=== PATIENT | female | born 1960 | race Caucasian/White ===

== ENCOUNTER 2017-08-10 12:09 | Emergency (ER) | payer OTHER ==
[~2017-08-10] VITALS: Ht 165.1 cm; Wt 90.7 kg
--- NOTE | 2017-08-10 12:19 | NUR ---
PATIENT TO ED DT COUGH AND COLD X LAST NIGHT CHEST HURTS FROM COUGHING. PATIENT APPEARS IN NO DISTRESS. VSS
[2017-08-10] MEDS ORDERED: Magnesium 1GM/D5W 100ML PREMIX 200 ML IV ONE ×2 (13:18→13:26)
[2017-08-10] MEDS ORDERED: methylPREDNISolone SOD SUCC 125 MG/2ML VIAL ONE (13:26)
[2017-08-10] MEDS ORDERED: IPRATROPIUM NEB FS 0.5 MG/2.5 ML AMPUL.NEB NEB ONE (13:30)
[2017-08-10] MEDS ORDERED: ALBUTEROL FS 2.5 MG/3 ML VIAL.NEB CONTNEB ONE (13:30)
[2017-08-10] MEDS ORDERED: methylPREDNISolone SOD SUCC 125 MG/2ML VIAL IV ONE (13:30)
[2017-08-10] MEDS ORDERED: IV NS 0.9% 1,000 ML BAG IV ONE (13:30)
--- NOTE | 2017-08-10 13:36 | NUR ---
CALLED RT FOR BREATHING TREATMENT
[2017-08-10] MEDS ORDERED: IPRATROPIUM NEB FS 0.5 MG/2.5 ML AMPUL.NEB ONE (13:43)
[2017-08-10] MEDS ORDERED: ALBUTEROL FS 2.5 MG/3 ML VIAL.NEB ONE (13:43)
[2017-08-10 15:27] VITALS: BP 140/80
--- NOTE | 2017-08-10 15:28 | NUR ---
Patient discharged to home in stable condition. Written and verbal after care instructions given. Patient verbalizes understanding of instruction.
== END 2017-08-10 15:28 | disposition home or self-care (01) ==
LOC: ER 12:11
DX: R09.02 Hypoxemia (principal); J40 Bronchitis, not specified as acute or chronic; I10 Essential (primary) hypertension; Z88.5 Allergy status to narcotic agent; Z72.0 Tobacco use
CPT/HCPCS: A4606; J2930; J3475; J7030; Z7610

== ENCOUNTER 2019-12-12 10:37 | Emergency (ER) | payer OTHER ==
[~2019-12-12] VITALS: Ht 165.1 cm; Wt 99.8 kg
--- NOTE | 2019-12-12 10:54 | NUR ---
collected urine and sent to lab
--- NOTE | 2019-12-12 11:00 | NUR ---
patient came in to the er c/o Dysuria and hematuria x 4 days. On room air, breathing evenly and unlabored. kept comfortable, will continue to monitor accordingly.
[2019-12-12 11:02] LABS: APPEARANCE,URINE SLIGHTLY CLOUDY (CLEAR); BILIRUBIN,URINE Negative (NEGATIVE); BLOOD, URINE Small Ery/uL (NEGATIVE); COLOR,URINE Yellow (YELLOW); KETONES,URINE Negative (NEGATIVE); LEUKOCYTE ESTERASE ,URINE Trace (NEGATIVE); NITRITE, URINE Negative (NEGATIVE); PH,URINE 8.5 (5.0-8.0); PROTEIN,URINE Negative (NEGATIVE); UGLUCOSE Negative (NEGATIVE); UROBILINOGEN,URINE 0.2 EU/dL (0.2)
[2019-12-12 11:08] LABS: RBC,URINE 20-30 /HPF (0-2)
[2019-12-12 11:09] LABS: BACTERIA,URINE Moderate /HPF (None Seen); SQUAMOUS EPITHELIAL CELL,UR Few /HPF (None Seen)
[2019-12-12 11:10] LABS: URINE AMORPHOUS PHOSPHATES Few /HPF (None Seen)
[2019-12-12 11:38] VITALS: BP 145/77
--- NOTE | 2019-12-12 11:38 | NUR ---
Patient discharged to home in stable condition. Written and verbal after care instructions given. Patient verbalizes understanding of instruction.
== END 2019-12-12 11:38 | disposition home or self-care (01) ==
LOC: ER 10:41
DX: N30.90 Cystitis, unspecified without hematuria (principal); I10 Essential (primary) hypertension; Z88.5 Allergy status to narcotic agent
CPT/HCPCS: 81000-TC; 87086-TC; 87186-TC

== ENCOUNTER 2020-04-12 15:45 | Emergency (ER) | payer OTHER ==
[~2020-04-12] VITALS: Ht 165.1 cm; Wt 90.7 kg
[2020-04-12 16:00] VITALS: BP 138/74
== END 2020-04-12 16:57 | disposition home or self-care (01) ==
LOC: ER 15:49
DX: M79.671 Pain in right foot (principal); L84 Corns and callosities; I10 Essential (primary) hypertension; Z86.73 Personal history of transient ischemic attack (TIA), and cerebral infarction without residual deficits; Z88.5 Allergy status to narcotic agent